=== PATIENT | male | born 1960 | race Caucasian/White ===

== ENCOUNTER 2017-11-25 08:56 | Day surgery (SDC) | payer BC ==
[2017-11-25] MEDS ORDERED: Lactated Ringers 1,000 ML IV SCH (09:30)
[2017-11-25] MEDS ORDERED: ceFAZolin 2 GM in Premix Bag 1 BAG IV ONE (10:15)
[2017-11-25] MEDS ORDERED: EPINEPHrine 1 MG/ML SDV ONE (10:46)
[2017-11-25] MEDS ORDERED: Povidone-Iodine 10% Soln 118.25 ML Bottle ONE (10:46)
[2017-11-25] MEDS ORDERED: Bupivacaine 0.5%/EPINEPHrine 1:200,000 50 ML MDV ONE (10:46)
[2017-11-25] MEDS ORDERED: Bupivacaine 0.5% 30 ML SDV ONE (10:54)
[2017-11-25] MEDS ORDERED: Lidocaine 1% 2 ML ONE (10:54)
[2017-11-25] MEDS ORDERED: Midazolam 1 MG/ML 2 ML SDV ONE (10:55)
[2017-11-25] MEDS ORDERED: fentaNYL 250 MCG/5 ML SDV ONE (11:01)
[2017-11-25] MEDS ORDERED: Glycopyrrolate 0.2 MG/ML 5 ML MDV ONE (11:01)
[2017-11-25] MEDS ORDERED: Ondansetron 4 MG/2 ML SDV ONE (11:01)
[2017-11-25] MEDS ORDERED: Propofol 200 MG/20 ML SDV ONE (11:01)
[2017-11-25] MEDS ORDERED: Neostigmine Methylsulfate 1 MG/ML 5 ML Syringe ONE (11:01)
[2017-11-25] MEDS ORDERED: Rocuronium 50 MG/5 ML Vial ONE (11:01)
[2017-11-25] MEDS ORDERED: Dexamethasone 4 MG/ML SDV ONE (11:01)
[2017-11-25] MEDS ORDERED: ePHEDrine 50 MG/ML SDV ONE (12:25)
[2017-11-25] MEDS ORDERED: Sodium Chloride 0.9% 10 ML ONE (12:34)
[2017-11-25] MEDS ORDERED: Phenylephrine 1% 10 MG/ML SDV ONE (12:34)
[2017-11-25 16:59] VITALS: BP 132/87
--- NOTE | 2017-11-25 18:54 | OR ---
DATE OF PROCEDURE: 11/25/2017 PREOPERATIVE DIAGNOSES: 1. Right shoulder impingement. 2. Right shoulder rotator cuff tear. POSTOPERATIVE DIAGNOSES: 1. Right shoulder impingement. 2. Right shoulder rotator cuff tear. PROCEDURE: 1. Right shoulder arthroscopy with subacromial decompression. 2. Limited debridement of synovium. 3. Partial bursectomy. 4. Mini open rotator cuff repair. POWDER CORE TESTER: RAHAT Manuel Physician assistant vice president, Kera Aguirre NP, played an essential role in assisting in this case, helping to position the patient, retract structures as needed, as well as suturing and cutting sutures as indicated. Her presence improved patient's safety and decreased operative time. ANESTHESIA: Regional anesthesia plus general endotracheal intubation. FLUID: Lactated Ringer solution. ESTIMATED BLOOD LOSS: 25 mL. COMPLICATIONS: None. SPECIMEN: None. DISCHARGE DISPOSITION: Stable to PACU. INDICATIONS FOR THE PROCEDURE: The patient was seen in clinic. He is an ICU nurse. 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 He failed nonoperative treatment. Risks and benefits of the procedure were explained to the patient. Informed consent was obtained. Preoperative imaging confirmed the above-mentioned diagnosis. DETAILS OF PROCEDURE: The patient was seen preoperatively by myself the anesthesia staff the preop holding area where the operative site was marked. He was brought to the operative suite by Anesthesia staff to the PACU and then to the operative suite after regional block was performed. General and endotracheal intubation was performed. He was then placed into beach chair position. All extremities found to be well padded. The right upper extremity was then prepped and draped in a sterile manner. A time-out was called identifying the correct patient, correct procedure, the correct site, and antibiotics had begun within appropriate period of time. The posterior portal was then made 1st and I entered the joint. I then used a spinal needle to enter just under the biceps tendon. There was some synovitis present. I did a limited synovectomy and debridement of the biceps tendon. I then removed my scope and shaver, and then into the subacromial space, then made a lateral portal for my shaver. I then performed a partial bursectomy and then removed soft tissue over the acromion. I then used an ablation unit to take any soft tissue remaining of the acromion and then used a casey to perform a subacromial decompression. After this had been performed, I then re-prepped and then made the incision approximately 4 cm from the tip of the anterior acromion over the deltoid raphae between the anterior middle thirds of the deltoid and then went through the raphae and then used Gelpi's for retraction. Bleeding was controlled by bipolar electrocautery. I then performed a partial bursectomy and then identified the rotator cuff tear. I was able to bring back the rotator cuff with Femi. Unfortunately, I needed to do marginal convergence stitch. I placed my 2 medial row anchors, the juggernaut anchors, and then went through the cuff both anteriorly and posteriorly and then did a marginal convergence stitch from both the anterior and posterior sutures. We then placed our lateral anchors and then tensioned those appropriately after running our sutures through them and then after appropriate tensioning was done, we drove those down to seat them properly. We then tied our remaining sutures together and then cut them. I then placed the patient through range of motion. The rotator cuff was operating very well. Please note, I did use small awl to make some holes for bed of bleeding bone. After that had been accomplished, we then closed the right raphae with #1 Stratafix followed by subcutaneous closure with 3-0 Stratafix followed by superficial closure with 3-0 nylon. The portals were closed with 3-0 nylon as well. Sterile dressing was placed. The knee was placed into an abduction pillow sling. He was then taken to the PACU in stable condition. German Lopes DO /[id number]
== END 2017-11-25 15:30 | disposition home or self-care (01) ==
LOC: JP.SDS 08:56
PROVIDERS: ATTEND Orthopaedic Surgery
DX: M75.121 Complete rotator cuff tear or rupture of right shoulder, not specified as traumatic (principal); M25.811 Other specified joint disorders, right shoulder; M65.811 Other synovitis and tenosynovitis, right shoulder; Z79.899 Other long term (current) drug therapy; Z87.891 Personal history of nicotine dependence
CPT/HCPCS: 23412; 29822; 29826; C1713; J0171; J0690; J1100; J2250; J2370; J2405; J2704; J2710; J3010; J7050; J7120; J2001

== ENCOUNTER 2022-04-07 07:07 | Day surgery (SDC) | payer BC ==
[2022-04-07] MEDS ORDERED: Propofol 200 MG/20 ML SDV ONE (07:21)
[2022-04-07] MEDS ORDERED: Midazolam 1 MG/ML 2 ML SDV ONE (07:22)
[2022-04-07] MEDS ORDERED: fentaNYL 100 MCG/2 ML SDV ONE (07:22)
[2022-04-07] MEDS ORDERED: Sodium Chloride 0.9% 1,000 ML IV SCH (08:00)
[2022-04-07 09:26] VITALS: PULSE 58
[2022-04-07 09:43] VITALS: BP 131/80
== END 2022-04-07 10:07 | disposition home or self-care (01) ==
LOC: JP.SDS 07:07
PROVIDERS: ATTEND Surgery
DX: K31.89 Other diseases of stomach and duodenum (principal); K21.9 Gastro-esophageal reflux disease without esophagitis
CPT/HCPCS: J2250; J2704; J3010; J7030

== ENCOUNTER 2024-09-27 06:34 | Day surgery (SDC) | payer BC ==
[2024-09-27] MEDS ORDERED: Neostigmine Methylsulfate 10 MG/10 ML MDV ONE (06:56)
[2024-09-27] MEDS ORDERED: Ondansetron 4 MG/2 ML SDV ONE (06:56)
[2024-09-27] MEDS ORDERED: Dexamethasone 4 MG/ML SDV ONE (06:56)
[2024-09-27] MEDS ORDERED: Propofol 200 MG/20 ML SDV ONE (06:56)
[2024-09-27] MEDS ORDERED: Glycopyrrolate 0.2 MG/ML 5 ML MDV ONE (06:56)
[2024-09-27] MEDS ORDERED: Rocuronium 50 MG/5 ML Vial ONE (06:56)
[2024-09-27] MEDS ORDERED: Succinylcholine 200 MG/10 ML MDV ONE (06:56)
[2024-09-27] MEDS ORDERED: fentaNYL 250 MCG/5 ML SDV ONE (06:57)
[2024-09-27 07:03] LABS: BASOPHILS ABSOLUTE AUTO 0.05 K/uL (0.00-0.10); EOSINOPHILS PERCENT AUTO 3.9 % (0.0-5.4); HEMOGLOBIN 13.7 g/dL (12.9-16.9); IMMATURE GRAN PERCENT AUTO 0.2 % (0.0-0.7); LYMPHOCYTES ABSOLUTE AUTO 2.04 K/uL (0.8-3.3); MEAN CORPUSCULAR HEMOGLOBIN 33.4 pg (31.6-35.5); MEAN CORPUSCULAR HGB CONC 36.1 g/dL (31.6-35.5); MEAN CORPUSCULAR VOLUME 92.7 fL (81.4-99.0); MONOCYTES ABSOLUTE AUTO 0.72 K/uL (0.20-0.90); MONOCYTES PERCENT AUTO 14.1 % (3.3-12.6); NEUTROPHILS ABSOLUTE AUTO 2.08 K/uL (1.0-7.6); NEUTROPHILS PERCENT AUTO 40.8 % (40.0-78.1); PLATELET COUNT,PLT 203 K/uL (130-375); WHITE BLOOD CELL COUNT,WBC 5.1 K/uL (3.2-11.0)
[2024-09-27 07:07] LABS: IMMATURE GRAN ABSOLUTE AUTO 0.01 K/uL (0.00-0.23)
[2024-09-27 07:24] LABS: A/G RATIO 1.2 (1.2-2.2); ALANINE AMINOTRANSFERASE,ALT 31 U/L (12-78); ALBUMIN 4.1 g/dL (3.4-5.0); ALKALINE PHOSPHATASE 74 U/L (46-116); ASPARTATE AMNIOTRANSFERASE,AST 25 U/L (15-37); BILIRUBIN TOTAL 0.9 mg/dL (0.2-1.0); BLOOD UREA NITROGEN,BUN 16 mg/dL (7-18); CALCIUM 9.2 mg/dL (8.5-10.1); CARBON DIOXIDE,CO2 27 mmol/L (21-32); CHLORIDE,CL 96 mmol/L (100-108); EST CRCL DRUG DOSING (CG) 74.84 mL/min; ESTIMATED GFR 84 mL/min (>60); GLUCOSE RANDOM 97 mg/dL (74-106); POTASSIUM,K 3.4 mmol/L (3.6-5.2); PROTEIN TOTAL,TP 7.4 g/dL (6.4-8.2); SODIUM,NA 133 mmol/L (140-148)
[2024-09-27 07:25] LABS: ANION GAP 13.4 mmol/L (5.0-14.0)
[2024-09-27] MEDS: metroNIDAZOLE/Normal Saline 500 MG in Premix Bag 1 BAG IV ONE (07:34)
[2024-09-27] MEDS: Lactated Ringers 1,000 ML IV SCH (07:35)
[2024-09-27] MEDS: ceFAZolin 2 GM in Premix Bag 1 BAG IV ONE (08:00)
[2024-09-27] MEDS ORDERED: fentaNYL 100 MCG/2 ML SDV ONE (08:29)
[2024-09-27] MEDS: Ropivacaine 40 ML, dexAMETHasone 8 MG, EPINEPHrine 0.4 MG, Sodium Chloride 0.9% 37.6 ML NERVRT SCH (08:33)
[2024-09-27] MEDS: Bupivacaine 0.5%/EPINEPHrine 1:200,000 50 ML MDV ONE (08:35)
[2024-09-27] MEDS ORDERED: Ketorolac 30 MG/ML SDV ONE (08:51)
[2024-09-27] MEDS ORDERED: Sugammadex Sodium 200 MG/2 ML VIAL IV ONE (09:01)
[2024-09-27 11:17] VITALS: BP 136/86; PULSE 72
== END 2024-09-27 11:15 | disposition home or self-care (01) ==
LOC: JP.SDS 06:34
PROVIDERS: ATTEND Surgery
DX: K40.30 Unilateral inguinal hernia, with obstruction, without gangrene, not specified as recurrent (principal); D17.6 Benign lipomatous neoplasm of spermatic cord; K21.9 Gastro-esophageal reflux disease without esophagitis; Z87.891 Personal history of nicotine dependence
CPT/HCPCS: 00830; 36415; 49650; 80053; 85025; C1781; J0171; J0330; J0690; J1100; J1596; J1836; J1885; J2405; J2704; J2710; J2795; J3010; J3490; J7120